=== PATIENT | female | born 1965 | race Caucasian/White ===

== ENCOUNTER → 2022-07-19 12:49 | Outpatient (CLI) | payer OTHER, SELFPAY ==
--- NOTE | ~2022-07-19 | US_ITS ---
EXAMINATION: US venous doppler LE RT DATE: 07/19/2022 13:22 INDICATION: Right lower limb pain and focal swelling. TECHNIQUE: Grayscale ultrasound images without and with compression and Doppler ultrasound images of the right lower extremity veins were obtained. COMPARISON: None. FINDINGS: The visualized portions of right common femoral vein, profunda (deep) femoral vein, femoral vein, pop liteal vein, peroneal veins, posterior tibial veins, and greater saphenous vein outflow are patent. T here is a small right Hines's cyst. IMPRESSION: 1. No deep venous thrombosis. 2. Small Hines's cyst. Reviewed, dictated and finalized at location A. [employer]
== END ==
PROVIDERS: PCP Family Medicine; Visit Provider Nurse Practitioner Family
DX: M25.561 Pain in right knee (principal); M79.89 Other specified soft tissue disorders; M71.20 Synovial cyst of popliteal space [Baker], unspecified knee
CPT/HCPCS: 93971

== ENCOUNTER → 2023-04-02 09:21 | Outpatient (CLI) | payer OTHER, SELFPAY ==
--- NOTE | ~2023-04-02 | US_ITS ---
Thyroid ultrasound. Clinical History: Hypothyroidism Findings: Real-time sonography of the thyroid gland was performed. The right lobe measures 4.8 x 1.3 x 1.4 cm. The left lobe measures 3.8 x 1.2 x 1.0 cm. The isthmus is 4 mm in AP diameter. No thyroid nodule evident. Impression: No thyroid nodule identified.. Reviewed, dictated and finalized at location . Impression: No thyroid nodule identified..
== END ==
PROVIDERS: PCP Family Medicine; Visit Provider Family Medicine
DX: E04.1 Nontoxic single thyroid nodule (principal); K21.9 Gastro-esophageal reflux disease without esophagitis; K43.9 Ventral hernia without obstruction or gangrene; E55.9 Vitamin D deficiency, unspecified; E53.8 Deficiency of other specified B group vitamins; J45.30 Mild persistent asthma, uncomplicated; E11.65 Type 2 diabetes mellitus with hyperglycemia; E03.9 Hypothyroidism, unspecified; I10 Essential (primary) hypertension
CPT/HCPCS: 76536

== ENCOUNTER 2025-01-07 12:46 | Outpatient (CLI) | payer BC, SELFPAY ==
[2025-01-07 18:23] LABS: Basophils Absolute Auto 0.1 K/mm3 (0.0-0.1); Basophils Percent Auto 0.6 % (0.2-1.2); Eosinophils Absolute Auto 0.5 K/mm3 (0-0.3); Eosinophils Percent Auto 3.3 % (0-4.4); Hematocrit 45.3 % (37.0-47.0); Hemoglobin 14.5 g/dL (12.0-15.0); Immature Granulocyte Absolute 0.07 K/mm3 (0.00-0.031); Immature Granulocyte Percent A 0.5 % (0-0.5); Lymphocytes Absolute Auto 2.59 K/mm3 (0.9-3.2); Mean Corpuscular Hemoglobin 28.8 pg (26-34); Mean Corpuscular Volume 89.9 fl (80-100); Mean Platelet Volume 10.2 fl (7.4-10.4); Monocytes Absolute Auto 0.8 K/mm3 (0.1-0.6); Monocytes Percent Auto 5.8 % (2.6-8.5); Neutrophils Absolute Auto 9.7 K/mm3 (1.3-6.7); Neutrophils Percent Auto 70.8 % (45.5-73.1); Platelet Count Result 432 k/mm3 (150-375); Red Blood Count 5.04 M/mm3 (4.2-5.4); Red Cell Distribution Width 13.5 % (11.5-14.5); White Blood Count 13.6 K/mm3 (4.5-10.0)
[2025-01-07 18:32] LABS: Prothrombin Time 13.3 Seconds (11.1-14.7)
[2025-01-07 18:54] LABS: Alanine Aminotransferase 27 U/L (6-35); Albumin Level 4.6 g/dL (3.5-5.1); Alkaline Phosphatase 90 U/L (38-126); Anion Gap 14 mmol/L (4-12); Aspartate Amino Transferase 36 U/L (14-36); Bilirubin,Total 0.4 mg/dL (0.2-1.3); Blood Urea Nitrogen 24 mg/dL (7-17); Calcium 9.9 mg/dL (8.4-10.2); Carbon Dioxide 24 mmol/L (22-30); Chloride 99 mmol/L (98-107); Estimated Glomerular Filt Rate > 60; Glucose 147 mg/dL (65-110); Potassium 3.4 mmol/L (3.4-5.0); Sodium 137 mmol/L (137-145)
== END 2025-01-07 12:47 | disposition home or self-care (01) ==
PROVIDERS: PCP Family Medicine; Visit Provider Nurse Practitioner Family
DX: R58 Hemorrhage, not elsewhere classified (principal)
CPT/HCPCS: 36415; 80053; 82180; 82607; 82746; 85025; 85610

== ENCOUNTER 2025-01-07 13:01 | Outpatient (CLI) | payer SELFPAY ==
--- NOTE | ~2025-01-07 | US_ITS ---
EXAMINATION:US venous doppler UE RT INDICATION:Right forearm pain TECHNIQUE: Multiple grayscale, color flow and Doppler images of the right upper extremity deep venous systems were obtained and reviewed. COMPARISON:None FINDINGS: The right jugular, subclavian, axillary, brachial, basilic, cephalic, radial and ulnar vein s demonstrate normal respiratory variation, augmentation and compressibility. Color flow is also se en within the right jugular, subclavian, axillary, brachial, basilic, cephalic and radial veins. IMPRESSION: No upper extremity deep venous thrombosis. Reviewed, dictated and finalized at location A.
== END 2025-01-07 13:02 | disposition home or self-care (01) ==
PROVIDERS: PCP Family Medicine; Visit Provider Nurse Practitioner Family
DX: M79.631 Pain in right forearm (principal); D69.2 Other nonthrombocytopenic purpura
CPT/HCPCS: 93971